=== PATIENT | male | born 1965 | race Caucasian/White ===

== ENCOUNTER 2021-10-03 09:57 | Emergency (ER) | payer OTHER ==
[2021-10-03] MEDS ORDERED: Sodium Chloride 0.9% 1,000 ML IV ONE (10:05)
[2021-10-03 10:47] LABS: BLOOD UREA NITROGEN,BUN 10 mg/dL (7.0-18.0); CARBON DIOXIDE,CO2 25.9 mmol/L (21.0-32.0); CHLORIDE,CL 101 mmol/L (98-107); GLUCOSE RANDOM 105 mg/dL (74-106); POTASSIUM,K 3.9 mmol/L (3.5-5.1); SODIUM,NA 137 mmol/L (136-148)
[2021-10-03] MEDS ORDERED: Iopamidol 755 MG/ML 500 ML Multipack Bottle IVPUSH STA (11:08)
[2021-10-03 11:09] LABS: CORONAVIRUS COVID-19 NAA POSITIVE (NEGATIVE); INFLUENZA A NAA NEGATIVE (NEGATIVE); INFLUENZA B NAA NEGATIVE (NEGATIVE)
[2021-10-03 12:30] VITALS: BP 154/90; PULSE 76
== END 2021-10-03 12:20 | disposition home or self-care (01) ==
LOC: MW.ED 09:57
DX: U07.1 COVID-19 (principal); Z79.01 Long term (current) use of anticoagulants
CPT/HCPCS: 0240U; 36415; 71045; 71275; 80053; 81003; 83735; 84484; 85025; 93005; 99285; J7030; Q9967

== ENCOUNTER 2024-01-24 14:33 | Emergency (ER) | payer OTHER ==
[2024-01-24] MEDS: Acetaminophen/HYDROcodone 325-5 MG Tab PO ONE (17:17)
[2024-01-24] MEDS ORDERED: Lidocaine 4% 1 each Patch TOP PRN (18:57)
[2024-01-24] MEDS: Ibuprofen 800 MG Tab PO ONE (19:36)
[2024-01-24] MEDS: Lidocaine 4% 1 each Patch TOP PRN (19:36)
[2024-01-24 19:50] VITALS: PULSE 99
[2024-01-24 19:51] VITALS: BP 152/100
== END 2024-01-24 19:50 | disposition home or self-care (01) ==
LOC: MW.ED 14:33
DX: S22.42XA Multiple fractures of ribs, left side, initial encounter for closed fracture (principal); S01.01XA Laceration without foreign body of scalp, initial encounter; M25.512 Pain in left shoulder; Z91.048 Other nonmedicinal substance allergy status; Z75.8 Other problems related to medical facilities and other health care; V69.3XXA Occupant (driver) (passenger) of heavy transport vehicle injured in unspecified nontraffic accident, initial encounter
CPT/HCPCS: 70450; 73030; 99284; A9270